=== PATIENT | male | born 1955 | race Caucasian/White ===

== ENCOUNTER 2020-10-06 09:15 | Outpatient (RCR) | payer OTHER, SELFPAY ==
[2020-09-01 09:38] VITALS: BMI 26.4
[2020-09-01 09:47] VITALS: BMI 26.4
== END 2020-10-06 15:55 | disposition home or self-care (01) ==
LOC: ANHDMC 09:15
PROVIDERS: PCP Family Medicine; Visit Provider Physician Assistant
DX: E11.65 Type 2 diabetes mellitus with hyperglycemia (principal); Z71.3 Dietary counseling and surveillance
CPT/HCPCS: 97802; G0108

== ENCOUNTER → 2020-11-06 02:09 | Outpatient (CLI) | payer OTHER, SELFPAY ==
[2020-11-06 19:12] LABS: SARS-CoV-2 RNA PCR Negative
== END ==
PROVIDERS: PCP Physician Assistant; Visit Provider Surgery
DX: Z01.812 Encounter for preprocedural laboratory examination (principal); Z20.822 Contact with and (suspected) exposure to COVID-19
CPT/HCPCS: C9803; U0003; U0005

== ENCOUNTER 2020-11-06 09:03 | Outpatient (CLI) | payer OTHER, SELFPAY ==
--- NOTE | 2020-11-06 09:14 | ECG_ITS ---
Measurements Intervals [place] Rate: 65 P: 54 LA: 202 QRS: -40 QRSD: 95 T: 44 QT: 357 QTc: 373 Interpretive Statements SINUS RHYTHM LEFT AXIS DEVIATION BORDERLINE R WAVE PROGRESSION, ANTERIOR LEADS BASELINE ARTIFACT- I, III, AVL, AVF, V4 BORDERLINE ECG Electronically Signed On 11-06-2020 14:23:58 CDT by Jose Armando Cronin D.O.
[2020-11-06 09:59] LABS: Hemoglobin 13.2 g/dL (14.0-18.0)
[2020-11-06 10:10] LABS: Anion Gap 7 mmol/L (8-16); Blood Urea Nitrogen 18 mg/dL (9-20); Calcium 9.3 mg/dL (8.4-10.2); Carbon Dioxide 29 mmol/L (22-30); Chloride 103 mmol/L (98-107); Estimated Glomerular Filt Rate > 60; Glucose 157 mg/dL (75-110); Potassium 4.3 mmol/L (3.4-5.0); Sodium 139 mmol/L (137-145)
== END 2020-11-06 09:04 | disposition home or self-care (01) ==
PROVIDERS: Anesthesiology; PCP Physician Assistant; Visit Provider Surgery
DX: K42.9 Umbilical hernia without obstruction or gangrene (principal); E11.65 Type 2 diabetes mellitus with hyperglycemia; E78.2 Mixed hyperlipidemia; I10 Essential (primary) hypertension; E61.1 Iron deficiency; Z01.818 Encounter for other preprocedural examination; R94.31 Abnormal electrocardiogram [ECG] [EKG]
CPT/HCPCS: 36415; 80048; 85014; 85018; 86850; 86900; 86901; 93005

== ENCOUNTER 2020-11-09 01:38 | Day surgery (SDC) | payer OTHER, SELFPAY ==
[2020-10-29 14:07] VITALS: BMI 26.6
[2020-11-09] VITALS (9 sets, daily range): BP systolic 112–145; BP diastolic 61–97; PULSE 64–74; RESP 10–16; TEMP 36.1; O2SAT 93–100
[2020-11-09] MEDS: LACTATED RINGERS 1,000 ML 30 ML IV CONT ×2 (10:20→13:09)
[2020-11-09] MEDS: ACETAMINOPHEN 500 MG TABLET 1000 MG PO (10:27)
[2020-11-09] MEDS: KETOROLAC 15 MG/ML VIAL (*BKC) IV PUSH (10:29)
[2020-11-09 10:48] LABS: Glucose Point of Care 103 (65-105)
--- NOTE | 2020-11-09 11:24 | WPDANESEPPF ---
Anes - Initial Pre Proc Eval Procedure: Operation Date: 11/09/20 12:00 Proposed Procedures p Laparoscopic Umbilical Hernia Repair With Mesh - Lew Stafford MD Date/Time: 11/09/20 11:24 Surgeon: Lew Stafford MD Pre Op Diagnosis: Umbilical Hernia Patient Data Age: 65 Gender: M Height: 1.65 m Weight: 69.7 kg Last Vital Signs Temp 36.1 C L 11/09/20 10:32 Pulse 74 11/09/20 10:32 Resp 16 11/09/20 10:32 BP 145/87 H 11/09/20 10:32 Pulse Ox 100 11/09/20 10:32 Allergies Allergy/AdvReac Type Severity Reaction Status Date / Time No Known Allergies Allergy Verified 10/29/20 14:03 Home Medications Medication Instructions Recorded Confirmed Type aspirin 81 mg tablet,delayed 81 mg PO DAILY 05/27/19 10/29/20 History release ferrous sulfate 325 mg (65 mg 325 mg PO DAILY 05/27/19 10/29/20 History iron) tablet omega-3 900 mg-dha 360 mg-epa 455 1 cap PO DAILY 05/27/19 10/29/20 History mg-fish oil 1,000 mg capsule cinnamon bark 500 mg capsule 500 mg PO DAILY 03/04/20 10/29/20 History ezetimibe 10 mg-simvastatin 40 mg 1 tablet PO DAILY #90 tablet 06/22/20 10/29/20 Rx tablet blood sugar diagnostic #100 each 08/31/20 10/13/20 Rx omeprazole 20 mg capsule,delayed 20 mg PO DAILY #90 cap 09/11/20 10/29/20 Rx release semaglutide 0.25 mg SUBCUT WEEKLY #6 ml 10/06/20 10/29/20 Rx amlodipine 5 mg tablet 5 mg PO DAILY #90 tablet 10/12/20 10/29/20 Rx fenofibrate nanocrystallized 145 145 mg PO DAILY #90 tablet 10/23/20 10/29/20 Rx mg tablet glimepiride 8 mg PO DAILY 10/29/20 10/29/20 History metformin 2,000 mg PO DAILY 10/29/20 10/29/20 History niacin 1,000 mg PO HS 10/29/20 10/29/20 History ramipril 10 mg capsule 10 mg PO DAILY #90 cap 10/29/20 10/29/20 Rx Laboratory Tests 11/09/20 10:45 POC Capillary Glucose 103 mg/dl mg/dl (65-105) Patient hx anesthesia problems: none Family hx anesthesia problems: none [facility] Past Medical History Medical History BMI 26.0-26.9,adult Colon cancer screening Encounter for colonoscopy following colon polyp removal Esophageal abnormality GERD (gastroesophageal reflux disease) History of colon polyps Iron deficiency Mixed hyperlipidemia Primary hypertension Prostate cancer screening Seasonal allergies Type 2 diabetes mellitus with hyperglycemia Umbilical hernia Surgical History Surgical History History of esophagogastroduodenoscopy (EGD) (~11/08/17) History of vasectomy Hx of colonoscopy (~2018) Hx of endoscopy Hx of tonsillectomy Family History Family History Father Hypertension Diabetes mellitus Heart disease Kidney disease Cerebrovascular accident Grandparent Heart disease Heart attack Social History Social History (Updated 10/13/20 @ 08:01 by Aleyda Montano CMA) Smoking status: Never smoker Second hand tobacco smoke exposure: No Alcohol intake: current Drinks per week: 3 Substance use: never Substance use type: does not use Living arrangements: with family 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 Gender identity (if verbalized by the patient): Male Spiritual care concerns: No Anes - Eval Final PreProcedure Day of Procedure 11/09/20 11:24 Patient weight: overweight Heart: regular rate and rhythm Lungs: clear to auscultation and normal air movement Airway: Mallampati scale class III Neurological: alert and oriented Last oral intake: >/= 8 hours ASA classification: III Emergent: no Anesthetic plan: proceed Anesthesia type and monitoring: general ETT and standard monitoring Informed Consent: The patient's anesthetic plan and its attendant risks and benefits were discussed with the patient/family/POA. Questions were solicited and answers provided to the satisfaction of the patient/family/POA.
--- NOTE | 2020-11-09 12:00 | WPDHPUPDATE1 ---
History and Physical Update Update Date/Time: 11/09/20 12:00 History and Physical has been reviewed, including an updated exam of the patient. There are NO changes in the patient's condition. Risks, benefits, and alternatives have been discussed and questions answered. Patient agrees to proceed with procedure.
[2020-11-09] MEDS: ceFAZolin 2 GM/D5W 50 ML 2 GM/50 ML BAG IVPB (12:04)
[2020-11-09] MEDS: BUPIVACAINE/EPINEPHRINE 0.5% 30 ML VIAL INFILTRATE (12:32)
--- NOTE | 2020-11-09 13:35 | SUR.PHASEI ---
O2 removed at 1335.
[2020-11-09 13:44] LABS: Glucose Point of Care 130 (65-105)
--- NOTE | 2020-11-09 15:03 | PM.PROC ---
Procedure Note - Detailed Date of procedure: 11/09/20 Pre-op diagnosis: Umbilical Hernia Post-op diagnosis: same Procedure performed: Laparoscopic umbilical hernia repair with mesh Description of procedure: DESCRIPTION OF PROCEDURE: The patient was placed in the supine position on the operative table and after induction of adequate general endotracheal anesthesia by Julio Anesthesia, the entire abdomen was prepped and draped in usual sterile fashion and the head placed slightly up. An Ioban drape was used to prevent contact of the mesh with the skin during this clean case. Following this, local anesthetic was placed and a spot selected about two fingerbreadths below the costal margin on the left and a small incision made after instilling local anesthetic using 0.25% Marcaine with epinephrine. Following this, a Veress needle technique using the water drop test was completed. Using 2 towel clips on the skin, I carefully elevated the skin and then passed the Veress needle into the abdomen and we could see that the saline droped through the Veress needle easily. CO2 gas was connected and the abdomen was insufflated to 14 mm Hg pressure after starting out at around 9. Following this, 0 degree 5 mm laparoscope was placed inside a 5 mm trocar, which was carefully twisted into the abdomen without difficulty, seeing a open pneumoperitoneum as we entered. Thus, the trocar was removed, the sleeve confirmed to be nicely within the abdomen, and we carefully inspected the abdomen. Careful inspection of the abdomen revealed no inguinal hernias. A small defect in the umbilicus that was actually difficult to see initially, but after placing a 12 mm port in the left lower quadrant under direct vision with the laparoscope, we could see up into a 11 mm flat defect that had been measured then with an instrument with a known cm marker and that could be palpated as a fascial defect when pushing exterally on the umbilical area. There was no incarceration of any omentum or any other adhesions to the underside of the umbilicus. There was fat from the urachus coming up into the area which might inhibit the tacks that I was planning to place through the mesh; therefore, this was taken down with Bovie cautery. We had no bleeding from this. This was nicely cauterized and then moved out of the way. Following this, we carefully planned by measuring the defect. The mesh was hydrated in saline. Our mesh, a circular 11 cm piece of Venta-light piece of mesh was chosen, so that we would have 4.5 cm of overlap in all directions over the circular umbilical defect. Following this, the ventra-light balloon hernia system mesh was rolled and this was inserted through the 12 mm port after rolling it to protect the absorbable covering on the downside of the mesh. A black silk suture was placed through the blue system a loop that is used to extract the tubing for the balloon positioning system such that I could grab this and pull it up through the umbilical area with the suture Passer. I used the suture passer after making a small opening with an 11 blade knife after placing local anesthetic directly in the center of the umbilicus. The suture passer was used to grasp this centering silk stitch on the piece of mesh, and this was pulled up, centering it. Then and insofar inflated the balloon system which brought the mesh up against the anterior abdominal wall centering it nicely with the center of the 11 centimeter piece of mesh over the center of the umbilicus. Two rows of tacks using the absorbable Tacker were completed circumferentially at the edge and then about a centimeter back from the edge. This seemed to give good security to the mesh completely covering the umbilical defect. Once this was completed, we carefully removed the tacker, snipped the tubing on the balloon system and removed this from the abdomen via the left lower quadrant 12 millimeter port site. I then carefully placed a #1 V
== END 2020-11-09 15:32 | disposition home or self-care (01) ==
PROVIDERS: PCP Physician Assistant; Visit Provider Surgery
PROC: (CPT 49652; principal; 2020-11-09 12:00)
DX: K42.9 Umbilical hernia without obstruction or gangrene (principal); I10 Essential (primary) hypertension; E11.9 Type 2 diabetes mellitus without complications; Z79.84 Long term (current) use of oral hypoglycemic drugs; K21.9 Gastro-esophageal reflux disease without esophagitis; E66.3 Overweight; Z68.25 Body mass index [BMI] 25.0-25.9, adult
CPT/HCPCS: 49652; 36415; 80048; 82948; 85014; 85018; 86850; 86900; 86901; 93005; A9270; C1781; C9803; J0690; J1100; J1170; J1885; J2250; J2405; J2704; J2710; J3010; J7120; U0003; U0005

== ENCOUNTER 2022-01-31 01:35 | Day surgery (SDC) | payer OTHER, SELFPAY ==
[2022-01-19 10:37] VITALS: BMI 24.2
--- NOTE | 2022-01-31 11:17 | WPDANESEPPF ---
Anes - Initial Pre Proc Eval Procedure: Operation Date: 01/31/22 12:30 Proposed Procedures p Screening Colonoscopy - George Lenz MD Date/Time: 01/31/22 11:17 Surgeon: George Lenz MD Pre Op Diagnosis: hx of colon polyps, neoplasm screening Patient Data Age: 67 Gender: M Height: 1.65 m Weight: 66 kg Allergies Allergy/AdvReac Type Severity Reaction Status Date / Time No Known Allergies Allergy Verified 01/31/22 11:18 Home Medications Medication Instructions Recorded Confirmed Type aspirin 81 mg tablet,delayed 81 mg PO DAILY 05/27/19 01/19/22 History release (Adult Aspirin Regimen) omega-3 900 mg-dha 360 mg-epa 455 1 cap PO DAILY 05/27/19 01/19/22 History mg-fish oil 1,000 mg capsule cinnamon bark 500 mg capsule 500 mg PO DAILY 03/04/20 01/19/22 History (Cinnamon) blood sugar diagnostic (OneTouch #100 ea 08/31/20 08/19/21 Rx Ultra Blue Test Strip) ferrous sulfate 325 mg (65 mg 650 mg PO DAILY 02/08/21 01/19/22 History iron) tablet (Feosol) ezetimibe 10 mg-simvastatin 40 mg 1 tablet PO DAILY #90 tabs 05/25/21 01/19/22 Rx tablet semaglutide 0.25 mg or 0.5 mg (2 0.5 mg (0.4 mL) subcut WEEKLY 90 09/08/21 01/19/22 Rx mg/1.5 mL) subcutaneous pen days #5.2 mL injector omeprazole 20 mg capsule,delayed 20 mg PO DAILY #90 caps 09/24/21 01/19/22 Rx release metformin 500 mg tablet,extended 2,000 mg PO DAILY #360 tabs 10/01/21 01/19/22 Rx release 24 hr amlodipine 5 mg tablet 5 mg PO DAILY #90 tabs 10/18/21 01/19/22 Rx fenofibrate nanocrystallized 145 145 mg PO DAILY #90 tabs 10/25/21 01/19/22 Rx mg tablet ramipril 10 mg capsule 10 mg PO DAILY #90 caps 11/01/21 01/19/22 Rx glimepiride 4 mg tablet 8 mg PO DAILY #90 tabs 01/12/22 01/19/22 Rx niacin 1,000 mg tablet,extended 1,000 mg PO HS #90 tabs 01/17/22 01/19/22 Rx release peg 3350-electrolytes 236 240 ml PO Q10M #4,000 mL 01/18/22 01/19/22 Rx gram-22.74 gram-6.74 gram-5.86 gram solution (Golytely) Patient hx anesthesia problems: none Family hx anesthesia problems: none Results Review: All pre-operative results and documents have been reviewed as part of the pre-operative evaluation. [facility] Past Medical History Medical History BMI 26.0-26.9,adult Colon cancer screening Encounter for colonoscopy following colon polyp removal Esophageal abnormality GERD (gastroesophageal reflux disease) History of colon polyps Iron deficiency Mixed hyperlipidemia Primary hypertension Prostate cancer screening Seasonal allergies Type 2 diabetes mellitus with hyperglycemia Umbilical hernia Surgical History Surgical History H/O umbilical hernia repair History of esophagogastroduodenoscopy (EGD) (~11/08/17) History of vasectomy Hx of colonoscopy (~2018) Hx of endoscopy Hx of tonsillectomy Family History Family History Father Hypertension Diabetes mellitus Heart disease Kidney disease Cerebrovascular accident Grandparent Heart disease Heart attack Social History Social History (Updated 08/19/21 @ 11:50 by Cassy Byrd PA-C) 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 Living at home with his . 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
[2022-01-31 11:20] VITALS: BP 136/88; PULSE 80; RESP 18; TEMP 36.2; O2SAT 100; BMI 23.2
[2022-01-31 11:22] LABS: Glucose Point of Care 55 mg/dl (65-105)
--- NOTE | 2022-01-31 11:23 | WPDGICN ---
Assessment and Plan Assessment and plan (1) History of colon polyps: Code(s): Z86.010 - Personal history of colonic polyps Status: Acute Assessment and Plan: Patient has a history of colon polyps removed from the colon 2018. He presents today for follow-up examination. High-fiber diet has been suggested. Further recommendations may be given after endoscopy. GI Consult Note Consult date/time: 01/31/22 11:23 Reason for consult: History of colon polyps. HPI: Charli Bhakta Jr. is a 67 year old male Presents for screening, surveillance colonoscopy. Patient has a history of colon polyp removed by Dr. Fernandez in 2018. Patient reports his current weight appetite and bowel movements are normal. He denies abdominal pain. Patient has had no bleeding. Family history noncontributory. He recently has increased his fiber intake. Review of Systems Review of Systems: Review of systems noncontributory. [facility] Past Medical History Medical History BMI 26.0-26.9,adult Colon cancer screening Encounter for colonoscopy following colon polyp removal Esophageal abnormality GERD (gastroesophageal reflux disease) History of colon polyps Iron deficiency Mixed hyperlipidemia Primary hypertension Prostate cancer screening Seasonal allergies Type 2 diabetes mellitus with hyperglycemia Umbilical hernia Surgical History Surgical History H/O umbilical hernia repair History of esophagogastroduodenoscopy (EGD) (~11/08/17) History of vasectomy Hx of colonoscopy (~2019) Hx of endoscopy Hx of tonsillectomy Family History Family History Father Hypertension Diabetes mellitus Heart disease Kidney disease Cerebrovascular accident Grandparent Heart disease Heart attack Social History Social History (Updated 08/19/21 @ 11:50 by Cassy Byrd PA-C) 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 Gender identity (if verbalized by the patient): Male Spiritual care concerns: No Meds Home Medications and Allergies Home Medications Medication Instructions Recorded Confirmed Type aspirin 81 mg tablet,delayed 81 mg PO DAILY 05/27/19 01/19/22 History release (Adult Aspirin Regimen) omega-3 900 mg-dha 360 mg-epa 455 1 cap PO DAILY 05/27/19 01/19/22 History mg-fish oil 1,000 mg capsule cinnamon bark 500 mg capsule 500 mg PO DAILY 03/04/20 01/19/22 History (Cinnamon) blood sugar diagnostic (OneTouch #100 ea 08/31/20 08/19/21 Rx Ultra Blue Test Strip) ferrous sulfate 325 mg (65 mg 650 mg PO DAILY 02/08/21 01/19/22 History iron) tablet (Feosol) ezetimibe 10 mg-simvastatin 40 mg 1 tablet PO DAILY #90 tabs 05/25/21 01/19/22 Rx tablet semaglutide 0.25 mg or 0.5 mg (2 0.5 mg (0.4 mL) subcut WEEKLY 90 09/08/21 01/19/22 Rx mg/1.5 mL) subcutaneous pen days #5.2 mL injector omeprazole 20 mg capsule,delayed 20 mg PO DAILY #90 caps 09/24/21 01/19/22 Rx release metformin 500 mg tablet,extended 2,000 mg PO DAILY #360 tabs 10/01/21 01/19/22 Rx release 24 hr amlodipine 5 mg tablet 5 mg PO DAILY #90 tabs 10/18/21 01/19/22 Rx fenofibrate nanocrystallized 145 145 mg PO DAILY #90 tabs 10/25/21 01/19/22 Rx mg tablet ramipril 10 mg capsule 10 mg PO DAILY #90 caps 11/01/21 01/19/22 Rx glimepiride 4 mg tablet 8 mg PO DAILY #90 tabs 01/12/22 01/19/22 Rx niacin 1,000 mg tablet,extended 1,000 mg PO HS #90 tabs 01/17/22 01/19/22 Rx release peg 3350-electrolytes 236 240 ml PO Q10M #4,000 mL
[2022-01-31] MEDS: DEXTROSE 50% 25 GM/50 ML SYRINGE IV PUSH (11:37)
--- NOTE | 2022-01-31 11:39 | SUR.PREOP ---
on arrival pt stated his blood sugar at home was 40. pt states felt a little woozy . accu check done, 55. dr atkins informed, ordered 0.5 amp of D50. iv started and gave 0.5 amp D50. intraop staff informed and blood sugar will be rechecked. pt states feeling better.
[2022-01-31 11:54] VITALS: BP 85/49; PULSE 82; RESP 17; O2SAT 100
[2022-01-31 12:04] VITALS: BP 124/62; PULSE 84; RESP 21; O2SAT 100
[2022-01-31] MEDS: LACTATED RINGERS 1,000 ML 150 ML IV CONT (12:05)
[2022-01-31 12:09] LABS: Glucose Point of Care 106 mg/dl (65-105)
[2022-01-31 12:14] VITALS: BP 119/74; PULSE 82; RESP 20; O2SAT 100
== END 2022-01-31 12:45 | disposition home or self-care (01) ==
PROVIDERS: PCP Family Medicine; Visit Provider Internal Medicine Gastroenterology
PROC: 0DJD8ZZ Inspection of Lower Intestinal Tract, Via Natural or Artificial Opening Endoscopic (ICD-10-PCS; CPT 45378; principal; 2022-01-31 12:30)
DX: Z12.11 Encounter for screening for malignant neoplasm of colon (principal); Z86.010 Personal history of colon polyps; K64.8 Other hemorrhoids; K57.30 Diverticulosis of large intestine without perforation or abscess without bleeding; K21.9 Gastro-esophageal reflux disease without esophagitis; D50.0 Iron deficiency anemia secondary to blood loss (chronic); E78.2 Mixed hyperlipidemia; E11.65 Type 2 diabetes mellitus with hyperglycemia; I10 Essential (primary) hypertension; Z79.82 Long term (current) use of aspirin; Z79.84 Long term (current) use of oral hypoglycemic drugs
CPT/HCPCS: 45378; 82948; J2704; J7120

== ENCOUNTER 2022-07-07 15:37 | Observation (INO) | payer OTHER, SELFPAY ==
[2022-07-07] VITALS (38 sets, daily range): BP systolic 111–135; BP diastolic 56–76; PULSE 96–115; RESP 14–43; TEMP 36.3–36.5; O2SAT 96–100; BMI 26.6
--- NOTE | ~2022-07-07 | US_ITS ---
EXAMINATION: US renal BI DATE: 07/08/2022 10:19 INDICATION: Acute on chronic renal failure TECHNIQUE: Multiple grayscale and Doppler ultrasound images of the kidneys were obtained. COMPARISON: None. FINDINGS: The right kidney measures 10.5 x 6.7 x 5.1 cm. The left kidney measures 10.2 x 5.8 x 6.1 cm . The kidneys demonstrate normal parenchymal echogenicity. There is no hydronephrosis. The bladder is normal. IMPRESSION: 1. Normal kidneys without hydronephrosis. Reviewed, dictated and finalized at location B. CONTROL WORKER
--- NOTE | ~2022-07-07 | CT_ITS ---
EXAMINATION: CT abdomen pelvis wo con DATE: 07/07/2022 17:40 INDICATION: Diarrhea. Nausea. TECHNIQUE: Computed tomography (CT) of the abdomen and pelvis was performed without intravenous contr ast. Automated exposure control and iterative reconstruction technique were employed. The dose-length product was 271.18 mGy-cm. COMPARISON: None. FINDINGS: The visualized portions of the lung bases demonstrate minimal atelectasis. No pleural effus ion. The heart size is normal. No pericardial effusion. The liver, gallbladder, spleen, pancreas, adr enal glands, and kidneys are normal. The prostate is mildly enlarged. There is liquid stool in the co pablo correlating with the symptom of diarrhea. There are scattered diverticula in the colon. The appen erlin is normal. There is fat stranding around the ascending, transverse, and descending colon. There a re no pathologically enlarged lymph nodes. There is no free intraperitoneal fluid. There is mild thor acolumbar spondylosis. There is a benign bone island in L4 vertebral body. IMPRESSION: 1. Fat stranding around the ascending, transverse, and descending colon, consistent with colitis. Reviewed, dictated and finalized at location A. SPORTATION SUPERINTENDENT IMPRESSION: 1. Fat stranding around the ascending, transverse, and descending colon, consis tent with colitis.
[2022-07-07 16:08] LABS: Basophils Percent Auto 0.7 % (0.2-1.2); Eosinophils Percent Auto 0.7 % (0-4.4); Hemoglobin 11.6 g/dL (14.0-18.0); Immature Granulocyte Absolute 0.03 K/mm3 (0.00-0.031); Immature Granulocyte Percent A 0.5 % (0-0.5); Lymphocytes Absolute Auto 0.57 K/mm3 (0.9-3.2); Lymphocytes Percent Auto 9.3 % (18.3-44.2); Mean Corpuscular HGB Conc 32.2 g/dl (32-36); Mean Platelet Volume 9.2 fl (7.4-10.4); Monocytes Absolute Auto 0.8 K/mm3 (0.1-0.6); Monocytes Percent Auto 12.6 % (2.6-8.5); Neutrophils Absolute Auto 4.7 K/mm3 (1.3-6.7); Neutrophils Percent Auto 76.2 % (45.5-73.1); Platelet Count Result 501 k/mm3 (150-375); Red Blood Count 3.87 M/mm3 (4.6-6.20); Red Cell Distribution Width 13.1 % (11.5-14.5); White Blood Count 6.1 K/mm3 (4.5-10.0)
[2022-07-07 16:21] LABS: Alanine Aminotransferase 27 U/L (6-50); Alkaline Phosphatase 57 U/L (38-126); Anion Gap 11 mmol/L (8-16); Aspartate Amino Transferase 34 U/L (17-59); Bilirubin,Total 0.5 mg/dL (0.2-1.3); Blood Urea Nitrogen 30 mg/dL (9-20); Calcium 9.2 mg/dL (8.4-10.2); Carbon Dioxide 15 mmol/L (22-30); Chloride 111 mmol/L (98-107); Estimated CRCL calculation 24 ml/min; Estimated Glomerular Filt Rate 27; Glucose 93 mg/dL (65-110); Lipase 362 U/L (23-300); Potassium 4.7 mmol/L (3.4-5.0); Sodium 137 mmol/L (137-145)
[2022-07-07 16:41] LABS: Add Urine Microscopic? YES; Appearance Urine Clear (Clear); Bilirubin Urine 1+ (Negative); Blood Urine Negative (Negative); Color Urine Yellow (Yellow); Glucose Urine UA Negative (Negative); Ketones Urine Trace mg/dL (Negative); Leukocyte Esterase Ur Negative LEU/UL (Negative); Nitrate Urine Negative (Negative); Protein Urine Trace mg/dL (Negative); Urobilinogen Urine 0.2 mg/dL (<2.0); pH Urine 5.5 (5.0-9.0)
[2022-07-07 16:47] LABS: Bacteria Urine Trace /hpf; Mucus Urine Rare /lpf; RBC Urine 0-2 /hpf (0-2); Squamous Epithelial Cell Urine Rare /hpf (Few); WBC Urine 0-3 /hpf
--- NOTE | 2022-07-07 17:30 | ED.GENADULT ---
HPI - General Adult General Chief complaint: Nausea/Vomiting/Diarrhea Stated complaint: DIARRHEA X WEEKS Time Seen by Provider: 07/07/22 16:51 Source: RN notes reviewed History of Present Illness HPI narrative: Patient presents emergency department from home for diarrhea. Patient has been having diarrhea for the past 2 and half weeks. He states he has had several episodes a day of watery diarrhea. States been associated with lower abdominal pain described as cramping. Denies any fevers or chills denies any chest pain shortness of breath nausea vomiting or any other symptoms. States he has been feeling dehydrated Related Data Home Medications Medication Instructions Recorded Confirmed aspirin 81 mg tablet,delayed 81 mg PO DAILY 05/27/19 02/22/22 release (Adult Aspirin Regimen) omega-3 900 mg-dha 360 mg-epa 455 1 cap PO DAILY 05/27/19 02/22/22 mg-fish oil 1,000 mg capsule cinnamon bark 500 mg capsule 500 mg PO DAILY 03/04/20 02/22/22 (Cinnamon) ferrous sulfate 325 mg (65 mg 650 mg PO DAILY 02/08/21 02/22/22 iron) tablet (Feosol) glucosamine 750 [id number] 1 tablet PO BID 02/22/22 02/22/22 no1 644 mg-C 30 mg-mandy 1 mg tablet (Osteo Bi-Flex Triple Strength) Allergies Allergy/AdvReac Type Severity Reaction Status Date / Time No Known Allergies Allergy Verified 02/22/22 08:56 Review of Systems Review of Systems: Gen.: Denies fevers or chills ENT: Denies congestion Respiratory: Denies shortness of breath or cough CV: Denies chest pain or palpitations GI: See HPI Musculoskeletal: Denies back pain or muscle pain Neuro: Denies numbness, tingling, weakness or focal weakness Skin: Denies rash Except as documented, all other systems reviewed and negative PMF Past Medical History Medical History BMI 26.0-26.9,adult Colon cancer screening Encounter for colonoscopy following colon polyp removal Esophageal abnormality GERD (gastroesophageal reflux disease) History of colon polyps Iron deficiency Mixed hyperlipidemia Primary hypertension Prostate cancer screening Seasonal allergies Type 2 diabetes mellitus with hyperglycemia Umbilical hernia Surgical History Surgical History H/O umbilical hernia repair History of esophagogastroduodenoscopy (EGD) (~11/08/17) History of vasectomy Hx of colonoscopy (~2019) Hx of endoscopy Hx of tonsillectomy Family History Family History Father Hypertension Diabetes mellitus Heart disease Kidney disease Cerebrovascular accident Grandparent Heart disease Heart attack Social History Social History 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 No clubbing, cyanosis or edema. NEURO: Awake and alert. Following commands, speech normal, no focal deficits SKIN:: Warm, dry. Normal Color PSYCHIATRIC: Normal affect/mood Course Course Emergency Course: Discussed with TAMIKO Jones for Dr. Dickey agrees with
[2022-07-07] MEDS: SODIUM CHLORIDE 0.9% IV 1,000 ML 999 ML IV CONT (18:01)
[2022-07-07] MEDS: SODIUM CHLORIDE 0.9% IV 1,000 ML 125 ML IV CONT (18:03)
[2022-07-07 19:23] LABS: Lactic Acid Reflex 0.8 mmol/L (0.7-2.0)
[2022-07-07 20:56] LABS: Influenza A QL RT-PCR Negative (Negative); Influenza B QL RT-PCR Negative (Negative); RSV RNA, RT-PCR Positive (Negative); SARS-CoV-2 RNA PCR Negative
[2022-07-07 21:30] LABS: Toxigenic C. Diff NEGATIVE (NEGATIVE)
--- NOTE | 2022-07-07 21:35 | PM.IMHP ---
H&P: HPI History of Present Illness Date/Time: 07/07/22 21:35 Chief Complaint: Nausea vomiting diarrhea Narrative: This is a 67-year-old male patient who stated he has been having diarrhea for the last 2 and half weeks. The patient has not been on any antibiotics. The patient stated that he has had several episodes of daily watery diarrhea. The patient tried Imodium and Lomotil without success. The patient has been having crampy abdominal pain. He denies any fever chills. He denies any upper respiratory symptoms. He denies any fever chills. Patient's H&H 11.6 and 36.0. The patient stated he has not noticed any blood in his stool. Stool specimen has been sent and the patient was found to be negative for C difficile. The patient was also negative for influenza A/B and COVID but was positive for RSV. Abdominal pelvis CT was read as fat stranding around the ascending transverse and descending colon consistent with colitis. The patient was started on Zosyn. Patient was also started on IV fluids in the emergency room. The patient was afebrile in the emergency room. The patient is being admitted for observation on the date of service of 07/07/2022 Review of Systems Review of Systems: See HPI All systems reviewed & are unremarkable except as noted in HPI and below Constitutional: Constitutional: Reports as per HPI and Reports no additional constitutional complaints Eyes: Eyes: Reports as per HPI and Reports no additional eye complaints ENT: Reports system reviewed and no additional complaints, except as documented and Reports Normal hearing present Cardiovascular: Cardiovascular: Reports no additional cardiovascular complaints Respiratory: Respiratory: Reports no additional respiratory complaints and Reports no additional respiratory complaints Gastrointestinal: Gastrointestinal: Reports as per HPI and Reports no additional gastrointestinal complaints Musculoskeletal: Musculoskeletal: Reports no additional musculoskeletal complaints Integumentary/Breasts: Skin/Breast: Reports system reviewed and no additional complaints, except as docu and Reports as per HPI Neurologic: Reports system reviewed and no additional complaints, except as documented, Reports as per HPI and Reports Normal hearing present Psychiatric: Psychiatric: Reports no additional psychiatric complaints and Reports as per HPI Endocrine: Endocrine: Reports no additional endocrine complaints Hematologic/Lymphatic: Hematologic/Lymphatic: Reports no additional hematologic/lymphatic complaints Allergic/Immunologic: Allergic/Immunologic: Reports no additional allergic/immunologic complaints [facility] Past Medical History Medical History (Updated 07/08/22 @ 00:29 by Karen Bunn NP) BMI 26.0-26.9,adult Colon cancer screening Encounter for colonoscopy following colon polyp removal Esophageal abnormality GERD (gastroesophageal reflux disease) History of colon polyps Iron deficiency Mixed hyperlipidemia Primary hypertension Prostate cancer screening Seasonal allergies Type 2 diabetes mellitus with hyperglycemia Umbilical hernia Surgical History Surgical History (Updated 07/08/22 @ 00:29 by Karen Bunn NP) H/O umbilical hernia repair History of colonoscopy with polypectomy History of esophagogastroduodenoscopy (EGD) (~11/08/17) History of vasectomy Hx of colonoscopy (~2018) Hx of endoscopy Hx of tonsillectomy Family History Family History Father Hypertension Diabetes mellitus Heart disease Kidney disease Cerebrovascular accident Grandparent Heart disease Heart attack Social History Social History (Updated 07/08/22 @ 00:24 by Karen Bunn NP) 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 Living at home with his . He is a former smoker. His is his durable power claims attorney for healthcare. Code status full code Smoking status: Former smoker [place]
--- NOTE | 2022-07-07 23:04 | ADMGEN ---
This patient, Charli Bhakta Jr., was admitted to Medical Room 248-01. Patient/family oriented to hospital policies and general routines including ID bracelet, bed and alarms, visiting hours, pain management, procedures, bathroom and other care routines, personal items, smoking policy, room service/diet, and visiting hours. Information on how to activate the Rapid Response Team has been discussed. Patient/Family are encouraged to report perceived risks to care and to ask questions if they do not understand what they are told or what they should do.
[2022-07-08] MEDS: SODIUM CHLORIDE 0.9% IV 1,000 ML 125 ML IV CONT (03:03)
[2022-07-08 03:43] VITALS: BP 115/65; PULSE 88; RESP 18; TEMP 36.1; O2SAT 100
[2022-07-08 05:52] LABS: Basophils Percent Auto 0.5 % (0.2-1.2); Eosinophils Percent Auto 0.2 % (0-4.4); Hematocrit 31.5 % (42.0-52.0); Immature Granulocyte Absolute 0.03 K/mm3 (0.00-0.031); Immature Granulocyte Percent A 0.5 % (0-0.5); Lymphocytes Percent Auto 6.2 % (18.3-44.2); Mean Corpuscular HGB Conc 31.7 g/dl (32-36); Mean Corpuscular Hemoglobin 29.9 pg (26-34); Mean Platelet Volume 9.1 fl (7.4-10.4); Monocytes Absolute Auto 0.4 K/mm3 (0.1-0.6); Monocytes Percent Auto 6.8 % (2.6-8.5); Neutrophils Absolute Auto 5.5 K/mm3 (1.3-6.7); Neutrophils Percent Auto 85.8 % (45.5-73.1); Platelet Count Result 422 k/mm3 (150-375); Red Blood Count 3.35 M/mm3 (4.6-6.20); Red Cell Distribution Width 12.9 % (11.5-14.5); White Blood Count 6.5 K/mm3 (4.5-10.0)
[2022-07-08 06:27] LABS: Alanine Aminotransferase 26 U/L (6-50); Albumin Level 3.3 g/dL (3.5-5.1); Alkaline Phosphatase 50 U/L (38-126); Anion Gap 9 mmol/L (8-16); Aspartate Amino Transferase 37 U/L (17-59); Bilirubin,Total 0.3 mg/dL (0.2-1.3); Blood Urea Nitrogen 25 mg/dL (9-20); Calcium 8.2 mg/dL (8.4-10.2); Carbon Dioxide 14 mmol/L (22-30); Chloride 112 mmol/L (98-107); Estimated CRCL calculation 21 ml/min; Estimated Glomerular Filt Rate 29; Glucose 35 mg/dL (65-110); Sodium 135 mmol/L (137-145)
[2022-07-08] MEDS: DEXTROSE 50% 25 GM/50 ML SYRINGE IV PUSH (06:32)
[2022-07-08] MEDS: DEXTROSE 5% 1,000 ML 1,000 ML 75 ML IVPB (06:46)
[2022-07-08 06:54] LABS: Glucose Point of Care 142 mg/dl (65-105)
[2022-07-08 06:54] LABS: Glucose Point of Care 24 mg/dl (65-105)
[2022-07-08 07:07] LABS: Hemoglobin A1C 7.5 % (<5.7)
[2022-07-08] MEDS: DEXTROSE 5% 1,000 ML 1,000 ML 75 ML IV CONT (08:52)
[2022-07-08 08:53] LABS: Glucose Point of Care 119 mg/dl (65-105)
[2022-07-08] MEDS: OMEGA 3 POLYUNSAT FATTY ACIDS 1 GM CAP PO (08:53)
[2022-07-08] MEDS: SIMVASTATIN 20 MG TABLET 40 MG PO (08:53)
[2022-07-08] MEDS: FENOFIBRATE NANOCRYSTALLIZED 145 MG TABLET PO (08:53)
[2022-07-08] MEDS: ASPIRIN 81 MG ENTERIC TABLET PO (08:53)
[2022-07-08] MEDS: EZETIMIBE 10 MG TABLET PO (08:54)
[2022-07-08] MEDS: FERROUS SULFATE 324 MG TABLET PO ×2 (08:54→17:49)
[2022-07-08] MEDS: amLODIPine BESYLATE 5 MG TABLET PO (08:54)
[2022-07-08] MEDS: CHOLESTYRAMINE (W/ SUGAR) 4 GM POWD.PACK PO ×2 (10:51→19:03)
[2022-07-08 11:58] LABS: Glucose Point of Care 318 mg/dl (65-105)
[2022-07-08] MEDS: INSULIN ASPART (*BKC) 100 UNITS/ML SUB-Q (12:32)
--- NOTE | 2022-07-08 12:41 | PM.IMPN ---
Progress Note: A&P Assessment and Plan (1) RSV (acute bronchiolitis due to respiratory syncytial virus): Code(s): J21.0 - Acute bronchiolitis due to respiratory syncytial virus Status: Acute Assessment and Plan: -supportive care -the patient has no upper respiratory symptoms (2) Colitis: Code(s): K52.9 - Noninfective gastroenteritis and colitis, unspecified Status: Acute Assessment and Plan: -the patient was negative for C diff -continue with Zosyn. -the patient has tried Lomotil and Imodium in the past. Without any affect. -banana flakes if available. Otherwise continue with Questran (3) Acute on chronic renal insufficiency: Code(s): N28.9 - Disorder of kidney and ureter, unspecified; N18.9 - Chronic kidney disease, unspecified Status: Acute Assessment and Plan: -continue to gently hydrate the patient. -avoid nephrotoxic medication such as metformin and ramipril -most likely secondary to the diarrhea. (4) Diarrhea: Code(s): R19.7 - Diarrhea, unspecified Status: Acute Assessment and Plan: -patient has colitis and was started on Zosyn. -patient was negative for C diff . -awaiting stool cultures. Continue with Questran. The patient stated that Imodium and Lomotil did not help. (5) Hypertension: Qualifiers: Hypertension type: primary hypertension Qualified Code(s): I10 - Essential (primary) hypertension Code(s): I10 - Essential (primary) hypertension Status: Acute Assessment and Plan: Hold nephrotoxic medications such as JABIER inhibitors -p.r.n. Hydralazine -continue with amlodipine (6) Type 2 diabetes mellitus with hyperglycemia: Qualifiers: Diabetes mellitus retirement insulin use: without retirement use Qualified Code(s): E11.65 - Type 2 diabetes mellitus with hyperglycemia Code(s): E11.65 - Type 2 diabetes mellitus with hyperglycemia Status: Acute Assessment and Plan: -check A1c -sliding scale insulin with hypoglycemic protocol -Accu-Cheks AC and HS. -holding metformin and glimepiride due to the acute renal failure. (7) Mixed hyperlipidemia: Code(s): E78.2 - Mixed hyperlipidemia Status: Acute Assessment and Plan: -continue with fenofibrate, niacin, Zetia, and simvastatin Subjective Date/time seen: 07/08/22 12:41 No new complaints Exam Const: General: cooperative, healthy appearing, comfortable, no acute distress, well developed, alert, awake, Physically active, average body habitus and well nourished Nutritional Appearance: average body habitus and well nourished Orientation/consciousness: oriented to person, oriented to place, oriented to time and patient oriented x3 Limitations: no limitations HENMT: Head: normal to inspection, No palpable skull fracture present, normocephalic and atraumatic Ears: hearing grossly normal bilaterally and external ears normal Face/Nose/Sinus: Normal external nose present and Normal nares present Eyes: General: appearance normal, both eyes and all related structures Alignment and Position: alignment normal Periorbital: periorbital findings normal Eyelids: eyelids normal Sclera: sclerae normal Pupils: Equal, round and reactive pupils present EOM: EOMs intact bilaterally Neck: Neck: normal visual inspection, full ROM, no lymphadenopathy, trachea midline and supple Chest: Chest palpation & inspection: normal inspection of the chest Resp: Effort & Inspection: normal respiratory effort Auscultation: clear to auscultation bilaterally Cardio: Palpation: normal PMI Rate: regular rate Rhythm: regular rhythm Heart sounds: S1 normal heart sound present and S2 normal heart sound present Peripheral pulses: Peripheral pulses 2+ throughout GI: Inspection: normal to inspection Auscultation: normal bowel sounds Rectal Exam: deferred Back/Spine/Pelvis: Cervical Spine: cervical ROM normal Skin: General skin exam: krystal
[2022-07-08 14:00] VITALS: BP 122/68; PULSE 91; RESP 18; TEMP 36.4; O2SAT 100
[2022-07-08 17:07] LABS: Glucose Point of Care 168 mg/dl (65-105)
[2022-07-08 20:12] VITALS: BP 115/67; PULSE 89; RESP 20; TEMP 36.2; O2SAT 100
[2022-07-08 21:13] LABS: Glucose Point of Care 128 mg/dl (65-105)
[2022-07-08] MEDS: NIACIN SA 500 MG TABLET 1000 MG PO (21:21)
[2022-07-09 03:34] VITALS: BP 115/73; PULSE 89; RESP 20; TEMP 36.3; O2SAT 100
[2022-07-09] MEDS: FERROUS SULFATE 324 MG TABLET PO (08:27)
[2022-07-09] MEDS: OMEGA 3 POLYUNSAT FATTY ACIDS 1 GM CAP PO (08:27)
[2022-07-09] MEDS: FENOFIBRATE NANOCRYSTALLIZED 145 MG TABLET PO (08:27)
[2022-07-09] MEDS: SIMVASTATIN 20 MG TABLET 40 MG PO (08:27)
[2022-07-09] MEDS: amLODIPine BESYLATE 5 MG TABLET PO (08:28)
[2022-07-09] MEDS: EZETIMIBE 10 MG TABLET PO (08:28)
[2022-07-09 08:31] VITALS: BP 117/77; PULSE 89; RESP 18; TEMP 36.4; O2SAT 100
[2022-07-09 08:42] LABS: Glucose Point of Care 29 mg/dl (65-105)
[2022-07-09 08:42] LABS: Glucose Point of Care 33 mg/dl (65-105)
[2022-07-09 09:07] LABS: Glucose Point of Care 85 mg/dl (65-105)
[2022-07-09] MEDS: CHOLESTYRAMINE (W/ SUGAR) 4 GM POWD.PACK PO (10:20)
[2022-07-09 11:52] LABS: Glucose Point of Care 120 mg/dl (65-105)
--- NOTE | 2022-07-09 12:24 | PM.DS ---
DS: Admitting Diagnosis Discharge Date July 09, 2022 Admitting Diagnosis Colitis DS: Discharge Diagnosis Discharge Diagnosis (1) RSV (acute bronchiolitis due to respiratory syncytial virus): Code(s): J21.0 - Acute bronchiolitis due to respiratory syncytial virus Status: Acute Assessment and Plan: -supportive care -the patient has no upper respiratory symptoms (2) Colitis: Code(s): K52.9 - Noninfective gastroenteritis and colitis, unspecified Status: Acute Assessment and Plan: -the patient was negative for C diff -continue with Zosyn. -the patient has tried Lomotil and Imodium in the past. Without any affect. -banana flakes if available. Otherwise continue with Questran (3) Acute on chronic renal insufficiency: Code(s): N28.9 - Disorder of kidney and ureter, unspecified; N18.9 - Chronic kidney disease, unspecified Status: Acute Assessment and Plan: -continue to gently hydrate the patient. -avoid nephrotoxic medication such as metformin and ramipril -most likely secondary to the diarrhea. (4) Diarrhea: Code(s): R19.7 - Diarrhea, unspecified Status: Acute Assessment and Plan: -patient has colitis and was started on Zosyn. -patient was negative for C diff . -awaiting stool cultures. Continue with Questran. The patient stated that Imodium and Lomotil did not help. (5) Hypertension: Qualifiers: Hypertension type: primary hypertension Qualified Code(s): I10 - Essential (primary) hypertension Code(s): I10 - Essential (primary) hypertension Status: Acute Assessment and Plan: Hold nephrotoxic medications such as JABIER inhibitors -p.r.n. Hydralazine -continue with amlodipine (6) Type 2 diabetes mellitus with hyperglycemia: Qualifiers: Diabetes mellitus oil heaterman insulin use: without penitentiary use Qualified Code(s): E11.65 - Type 2 diabetes mellitus with hyperglycemia Code(s): E11.65 - Type 2 diabetes mellitus with hyperglycemia Status: Acute Assessment and Plan: -check A1c -sliding scale insulin with hypoglycemic protocol -Accu-Cheks AC and HS. -holding metformin and glimepiride due to the acute renal failure. (7) Mixed hyperlipidemia: Code(s): E78.2 - Mixed hyperlipidemia Status: Acute Assessment and Plan: -continue with fenofibrate, niacin, Zetia, and simvastatin DS: Summary Hospital Course Hospital Course: Patient admitted for colitis tolerating a diet. Will be discharged on antibiotics. Otherwise patient is tolerating a diet ambulating having some loose stools but this is not that frequent. Having less than 2 or 3 per day. He can be discharged home Time Spent with Patient Time attestation: Total time spent providing and/or coordinating discharge services: Exam Const: General: cooperative, healthy appearing, comfortable, no acute distress, well developed, alert, awake, Physically active, average body habitus and well nourished Nutritional Appearance: average body habitus and well nourished Orientation/consciousness: oriented to person, oriented to place, oriented to time and patient oriented x3 Limitations: no limitations HENMT: Head: normal to inspection, No palpable skull fracture present, normocephalic and atraumatic Ears: hearing grossly normal bilaterally and external ears normal Face/Nose/Sinus: Normal external nose present and Normal nares present Eyes: General: appearance normal, both eyes and all related structures Alignment and Position: alignment normal Periorbital: periorbital findings normal Eyelids: eyelids normal Sclera: sclerae normal Pupils: Equal, round and reactive pupils present EOM: EOMs intact bilaterally Neck: Neck: normal visual inspection, full ROM, no lymphadenopathy, trachea midline and supple Chest: Chest palpation & inspection: normal inspection of the chest Resp: Effort & Inspection: normal respiratory eff
[2022-07-09 13:23] VITALS: BP 121/77; PULSE 86; RESP 18; TEMP 36.5; O2SAT 94
[2022-07-13 19:59] LABS: C-Peptide 5.79 ng/mL (0.80-3.85)
[2022-07-14 09:55] LABS: Insulin Level Total 8.2 uIU/mL (<=19.6)
== END 2022-07-09 13:44 | disposition home or self-care (01) ==
LOC: ANHED 18:13 → ANH2MED 22:30 → ANH3MEDSUR 07-12 13:41
PROVIDERS: Nurse Practitioner; Admitting Provider Internal Medicine; Emergency Provider Emergency Medicine; PCP Family Medicine; Visit Provider Chiropractor
DX: J21.0 Acute bronchiolitis due to respiratory syncytial virus (principal); K52.9 Noninfective gastroenteritis and colitis, unspecified; E11.65 Type 2 diabetes mellitus with hyperglycemia; I12.9 Hypertensive chronic kidney disease with stage 1 through stage 4 chronic kidney disease, or unspecified chronic kidney disease; N18.9 Chronic kidney disease, unspecified; R10.30 Lower abdominal pain, unspecified; K21.9 Gastro-esophageal reflux disease without esophagitis; D64.9 Anemia, unspecified; E78.2 Mixed hyperlipidemia; F10.90 Alcohol use, unspecified, uncomplicated; Z87.891 Personal history of nicotine dependence; Z79.82 Long term (current) use of aspirin; Z79.899 Other long term (current) drug therapy; Z84.89 Family history of other specified conditions; Z82.49 Family history of ischemic heart disease and other diseases of the circulatory system; Z83.3 Family history of diabetes mellitus
CPT/HCPCS: 36415; 74176; 76775; 80053; 81001; 82948; 83036; 83525; 83605; 83690; 84681; 85025; 87040; 87045; 87269; 87272; 87427; 87493; 87637; 89055; 96361; 96365; 96375; 96376; 99285; A9270; G0378; J1815; J2543; J7030; J7070

== ENCOUNTER 2025-01-01 00:43 | Day surgery (SDC) | payer MEDICARE, SELFPAY ==
[2024-12-17 09:07] VITALS: BMI 25.0
[2025-01-01 07:52] VITALS: BP 124/82; PULSE 69; RESP 18; TEMP 36.7; O2SAT 99
[2025-01-01] MEDS: LACTATED RINGERS 1,000 ML 150 ML IV CONT (08:05)
[2025-01-01] MEDS: SIMETHICONE ORAL SUSPENSION 20 MG/0.3 ML 30 ML BOTTLE 1.8 ML PO (08:06)
[2025-01-01 08:07] LABS: Glucose Point of Care 103 mg/dl (65-105)
--- NOTE | 2025-01-01 08:20 | WPDANESEPPF ---
Anes - Initial Pre Proc Eval Procedure: Operation Date: 01/01/25 09:00 Proposed Procedures p Esophagogastroduodenoscopy - Ethan Ocasio MD Date/Time: 01/01/25 08:20 Surgeon: Ethan Ocasio MD Pre Op Diagnosis: Dysphagia, unspecified Patient Data Age: 70 Gender: M Height: 1.65 m Weight: 64.7 kg Last Vital Signs Temp 36.7 C 01/01/25 07:52 Pulse 69 01/01/25 07:52 Resp 18 01/01/25 07:52 BP 124/82 01/01/25 07:52 Pulse Ox 99 01/01/25 07:52 O2 Del Method Room Air 01/01/25 07:52 Allergies Allergy/AdvReac Type Severity Reaction Status Date / Time No Known Allergies Allergy Verified 01/01/25 07:50 Home Medications ?Medication ?Instructions ?Recorded ?Confirmed ?Type aspirin 81 mg tablet,delayed 81 mg PO DAILY 05/27/19 01/01/25 History release (Adult Aspirin Regimen) omega-3 900 mg-dha 360 mg-epa 455 1 cap PO DAILY 05/27/19 01/01/25 History mg-fish oil 1,000 mg capsule cinnamon bark 500 mg capsule 500 mg PO DAILY 03/04/20 01/01/25 History (Cinnamon) ferrous sulfate 325 mg (65 mg 650 mg PO DAILY 02/08/21 01/01/25 History iron) tablet (Feosol) glucosamine 750 [id number]-[id number]-slt 1 tablet PO DAILY 02/22/22 01/01/25 History no1 644 mg-C 30 mg-mandy 1 mg tablet (Osteo Bi-Flex Triple Strength) ezetimibe 10 mg-simvastatin 40 mg 1 tablet PO DAILY #90 tabs 03/06/24 01/01/25 Rx tablet lancets 33 gauge (OneTouch Delica #100 ea 03/25/24 12/17/24 Rx Plus Lancet) amlodipine 5 mg tablet 5 mg PO DAILY #90 tabs 04/03/24 01/01/25 Rx blood sugar diagnostic (OneTouch #300 ea 04/04/24 12/17/24 Rx Verio test strips) blood-glucose meter (OneTouch #1 ea 04/04/24 12/17/24 Rx Verio Flex Start kit) omeprazole 20 mg capsule,delayed 20 mg PO DAILY #90 caps 07/12/24 01/01/25 Rx release niacin 1,000 mg tablet,extended 1,000 mg PO HS #90 tabs 07/17/24 01/01/25 Rx release ramipril 10 mg capsule 10 mg PO DAILY #90 caps 07/17/24 01/01/25 Rx semaglutide 0.25 mg or 0.5 mg (2 See Rx Instructions .Route 09/22/24 01/01/25 Rx mg/3 mL) subcutaneous pen injector .COMPLEX #9 mL (Ozempic) glimepiride 4 mg tablet 4 mg PO QAM #90 tabs 10/13/24 01/01/25 Rx metformin 500 mg tablet,extended 500 mg PO BID #180 tabs 11/14/24 01/01/25 Rx release 24 hr Laboratory Tests 01/01/25 08:02 POC Capillary Glucose 103 mg/dl (65-105) Patient hx anesthesia problems: none Family hx anesthesia problems: none Results Review: All pre-operative results and documents have been reviewed as part of the pre-operative evaluation. [facility] Past Medical History Medical History RSV (acute bronchiolitis due to respiratory syncytial virus) Acute dehydration Acute on chronic renal insufficiency Colitis Diarrhea History of colon polyps Seasonal allergies Umbilical hernia Mixed hyperlipidemia Iron deficiency GERD (gastroesophageal reflux disease) Type 2 diabetes mellitus with hyperglycemia Esophageal abnormality Encounter for colonoscopy following colon polyp removal Surgical History Surgical History History of colonoscopy with polypectomy H/O umbilical hernia repair Hx of tonsillectomy Hx of colonoscopy (~2018) History of esophagogastroduodenoscopy (EGD) (~11/08/17) History of vasectomy Hx of endoscopy Family History Family History Father Hypertension Diabetes mellitus Heart disease Kidney disease Cerebrovascular accident Grandparent Heart disease Heart attack Social History Social History Social History: 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 He has 3 children. Living at home with his . He is a former smoker. His is his durable power databases computer consultant for healthcare. Code status full code Smoking status: Never smoker Tobacco type: cigars Second hand tobacco smoke exposure: No Additional smoking assessment comments: Once a month cigars Alcohol intake: current Alcohol use details: 2-3 BEERS/MONTH, AT MOST Substance use: never Substance use type: does not use Lack of Transportation: No Lack of Food: Never True Current Housing: I Have Housing Concerned About Future Housing: No Difficulty Paying Gas/Electric Bills: No Difficulty Paying for Meds: No Currently Unemployed: No Education: Bachelor's Degree Difficulty w/ Childcare or Family Care: No Living arrangements: with family Occupation/Education: retired 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 Informed Consent: The patient's anesthetic plan and its attendant risks and benefits were discussed with the patient/family/POA. Questions were solicited and answers provided to the satisfaction of the patient/family/POA.
--- NOTE | 2025-01-01 09:08 | PM.IMHP ---
H&P: HPI History of Present Illness Date/Time: 01/01/25 09:08 Chief Complaint: GERD Narrative: this patient had a history of peptic stricture that was dilated several years ago. Since then, he has been watching his diet and taking omeprazole 20 mg once a day every morning. He is currently asymptomatic and is referred for EGD. Review of Systems Review of Systems: All systems reviewed & are unremarkable except as noted in HPI and below PMFSH Past Medical History Medical History RSV (acute bronchiolitis due to respiratory syncytial virus) Acute dehydration Acute on chronic renal insufficiency Colitis Diarrhea History of colon polyps Seasonal allergies Umbilical hernia Mixed hyperlipidemia Iron deficiency GERD (gastroesophageal reflux disease) Type 2 diabetes mellitus with hyperglycemia Esophageal abnormality Encounter for colonoscopy following colon polyp removal Surgical History Surgical History History of colonoscopy with polypectomy H/O umbilical hernia repair Hx of tonsillectomy Hx of colonoscopy (~2018) History of esophagogastroduodenoscopy (EGD) (~11/08/17) History of vasectomy Hx of endoscopy Family History Family History Father Hypertension Diabetes mellitus Heart disease Kidney disease Cerebrovascular accident Grandparent Heart disease Heart attack Social History Social History Social History: 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 Living at home with his . He is a former smoker. His is his durable power erisa attorney for healthcare. Code status full code Smoking status: Never smoker Tobacco type: cigars Second hand tobacco smoke exposure: No Additional smoking assessment comments: Once a month cigars Alcohol intake: current Alcohol use details: 2-3 BEERS/MONTH, AT MOST Substance use: never Substance use type: does not use Lack of Transportation: No Lack of Food: Never True Current Housing: I Have Housing Concerned About Future Housing: No Difficulty Paying Gas/Electric Bills: No Difficulty Paying for Meds: No Currently Unemployed: No Education: Bachelor's Degree Difficulty w/ Childcare or Family Care: No Living arrangements: with family Occupation/Education: retired 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 Gender identity (if verbalized by the patient): Male Spiritual care concerns: No Meds Home Medications and Allergies Home Medications ?Medication ?Instructions ?Recorded ?Confirmed ?Type aspirin 81 mg tablet,delayed 81 mg PO DAILY 05/27/19 01/01/25 History release (Adult Aspirin Regimen) omega-3 900 mg-dha 360 mg-epa 455 1 cap PO DAILY 05/27/19 01/01/25 History mg-fish oil 1,000 mg capsule cinnamon bark 500 mg capsule 500 mg PO DAILY 03/04/20 01/01/25 History (Cinnamon) ferrous sulfate 325 mg (65 mg 650 mg PO DAILY 02/08/21 01/01/25 History iron) tablet (Feosol) glucosamine 750 vx-kgdgbzvfeax-ehd 1 tablet PO DAILY 02/22/22 01/01/25 History no1 644 mg-C 30 mg-mandy 1 mg tablet (Osteo Bi-Flex Triple Strength) ezetimibe 10 mg-simvastatin 40 mg 1 tablet PO DAILY #90 tabs 03/06/24 01/01/25 Rx tablet lancets 33 gauge (OneTouch Delica #100 ea 03/25/24 12/17/24 Rx Plus Lancet) amlodipine 5 mg tablet 5 mg PO DAILY #90 tabs 04/03/24 01/01/25 Rx blood sugar diagnostic (OneTouch #300 ea 04/04/24 12/17/24 Rx Verio test strips) blood-glucose meter (OneTouch #1 ea 04/04/24 12/17/24 Rx Verio Flex Start kit) omeprazole 20 mg capsule,delayed 20 mg PO DAILY #90 caps 07/12/24 01/01/25 Rx release niacin 1,000 mg tablet,extended 1,000 mg PO HS #90 tabs 07/17/24 01/01/25 Rx release ramipril 10 mg capsule 10 mg PO DAILY #90 caps 07/17/24 01/01/25 Rx semaglutide 0.25 mg or 0.5 mg (2 See Rx Instructions .Route 09/22/24 01/01/25 Rx mg/3 mL) subcutaneous pen injector .COMPLEX #9 mL (Ozempic) glimepiride 4 mg tablet 4 mg PO QAM #90 tabs 10/13/24 01/01/25 Rx metformin 500 mg tablet,extended 500 mg PO BID #180 tabs 11/14/24 01/01/25 Rx release 24 hr Allergies Allergy/AdvReac Type Severity Reaction Status Date / Time No Known Allergies Allergy Verified 01/01/25 07:50 Vital Signs Vital Signs - 24 hr 01/01/25 07:52 Temperature 98.1 F Pulse Rate 69 Respiratory Rate 18 Blood Pressure 124/82 Pulse Oximetry 99 Oxygen Delivery Room Air Exam Const: General: cooperative and healthy appearing Resp: Effort & Inspection: normal respiratory effort and able to speak in complete sentences Auscultation: clear to auscultation bilaterally Cardio: Rate: regular rate Rhythm: regular rhythm GI: Inspection: normal to inspection GI Palp: No No hepatosplenomegaly present Auscultation: normal bowel sounds Rectal Exam: deferred Skin: General skin exam: normal color Psych: Appearance: grossly normal Mental Status: mental status grossly normal Assessment and Plan Assessment and plan (1) GERD (gastroesophageal reflux disease): Qualifiers: Esophagitis presence: esophagitis presence not specified Qualified Code(s): K21.9 - Gastro-esophageal reflux disease without esophagitis Code(s): K21.9 - Gastro-esophageal reflux disease without esophagitis Status: Acute Assessment and Plan: The patient is deemed a good candidate for the procedure. Consent signed. Will proceed.
[2025-01-01] MEDS: BENZOCAINE (*SP) 60 ML SPRAY CAN (HURRICAINE) 1 SPRAY MUCOUS MEM (09:12)
--- NOTE | 2025-01-01 09:21 | S_PTH ---
PATIENT: Charli Bhakta Jr. LOC: [facility] #:[id number] AGE/SX: 70/M ROOM: RE01/01/[address]: Ethan Ocasio MD : [id number] BED: DIS: 01/01/2025 SPEC #: [id number] RECD: 01/01/25 10:39 STATUS: ENDY REQ #: [id number] MELISSA: 01/01/25 09:[address]: Ethan Ocasio DEPT: [facility] Surgical RECD BY: Luisa Chugn ENTERED: 01/01/25 10:40 SP TYPE: Surgical OTHR DR: Erna LindquistMD Tissues: A - Gastric Biopsy B - Gastric Biopsy Procedures: Hematoxylin and Eosin Stain Gross and Microscopic Level 4
[2025-01-01 09:23] VITALS: BP 123/69; PULSE 71; RESP 15; O2SAT 98
[2025-01-01 09:33] VITALS: BP 133/78; PULSE 76; RESP 16; O2SAT 100
[2025-01-01 09:43] VITALS: BP 143/85; PULSE 70; RESP 17; O2SAT 100
== END 2025-01-01 09:54 | disposition home or self-care (01) ==
PROVIDERS: PCP Family Medicine; Referring Provider Student in an Organized Health Care Education/Training Program; Visit Provider Internal Medicine Gastroenterology
PROC: 0DJ08ZZ Inspection of Upper Intestinal Tract, Via Natural or Artificial Opening Endoscopic (ICD-10-PCS; CPT 43239; principal; 2025-01-01 09:00)
DX: K21.9 Gastro-esophageal reflux disease without esophagitis (principal); K29.30 Chronic superficial gastritis without bleeding; E11.65 Type 2 diabetes mellitus with hyperglycemia; E11.22 Type 2 diabetes mellitus with diabetic chronic kidney disease; N18.9 Chronic kidney disease, unspecified; E78.2 Mixed hyperlipidemia; E61.1 Iron deficiency; Z79.82 Long term (current) use of aspirin; Z79.85 Long-term (current) use of injectable non-insulin antidiabetic drugs; Z79.84 Long term (current) use of oral hypoglycemic drugs; Z98.890 Other specified postprocedural states; Z86.0100 Personal history of colon polyps, unspecified; Z87.891 Personal history of nicotine dependence; Z87.19 Personal history of other diseases of the digestive system; Z82.49 Family history of ischemic heart disease and other diseases of the circulatory system
CPT/HCPCS: 43239; 82948; 88305; J2003; J2704; J7120